=== PATIENT | female | born 1940 | race Caucasian/White ===

== ENCOUNTER 2018-09-20 10:15 | Outpatient (CLI) | payer OTHER, MEDICARE ==
[~2018-09-20 10:15] MED LIST: PROP80CA
== END 2018-09-20 19:58 | disposition home or self-care (01) ==
LOC: SMA 10:15
PROVIDERS: ATTEND Obstetrics & Gynecology Gynecology
DX: Z12.31 Encounter for screening mammogram for malignant neoplasm of breast (principal)
CPT/HCPCS: 77067

== ENCOUNTER 2019-09-29 09:58 | Outpatient (CLI) | payer OTHER, MEDICARE | END 2019-10-01 19:33 | disposition home or self-care (01) | LOC: SMA 09:58 | PROVIDERS: ATTEND Obstetrics & Gynecology Gynecology | DX: Z12.31 Encounter for screening mammogram for malignant neoplasm of breast (principal) | CPT/HCPCS: 77067 ==

== ENCOUNTER 2019-10-12 09:47 | Outpatient (CLI) | payer OTHER, MEDICARE | END 2019-10-12 20:25 | disposition home or self-care (01) | LOC: SMA 09:47 | PROVIDERS: ATTEND Obstetrics & Gynecology Gynecology | DX: R92.8 Other abnormal and inconclusive findings on diagnostic imaging of breast (principal) | CPT/HCPCS: 76641; 77065 ==

== ENCOUNTER 2020-10-02 11:22 | Outpatient (CLI) | payer OTHER, MEDICARE | END 2020-10-02 21:18 | disposition home or self-care (01) | LOC: SMA 11:22 | PROVIDERS: ATTEND Obstetrics & Gynecology Gynecology | DX: Z12.31 Encounter for screening mammogram for malignant neoplasm of breast (principal) | CPT/HCPCS: 77067 ==

== ENCOUNTER 2020-10-16 10:40 | Outpatient (CLI) | payer OTHER, MEDICARE | END 2020-10-16 20:31 | disposition home or self-care (01) | LOC: SUS 10:40 | PROVIDERS: ATTEND Obstetrics & Gynecology Gynecology | DX: R92.2 Inconclusive mammogram (principal) | CPT/HCPCS: 76641 ==

== ENCOUNTER 2021-10-06 09:57 | Outpatient (CLI) | payer OTHER, MEDICARE | END 2021-10-06 20:43 | disposition home or self-care (01) | LOC: SMA 09:57 | PROVIDERS: ATTEND Obstetrics & Gynecology Gynecology | DX: Z12.31 Encounter for screening mammogram for malignant neoplasm of breast (principal) | CPT/HCPCS: 77067 ==

== ENCOUNTER 2022-10-12 10:55 | Outpatient (CLI) | payer OTHER, MEDICARE | END 2022-10-12 19:03 | disposition home or self-care (01) | LOC: SMA 10:55 | PROVIDERS: ATTEND Obstetrics & Gynecology Gynecology | DX: Z12.31 Encounter for screening mammogram for malignant neoplasm of breast (principal) | CPT/HCPCS: 77067 ==

== ENCOUNTER 2022-11-15 11:10 | Emergency (ER) | payer OTHER, MEDICARE ==
[~2022-11-15] VITALS: Ht 157.5 cm; Wt 64.9 kg
[2022-11-15 11:27] VITALS: BP_SYST 155
--- NOTE | 2022-11-15 11:50 | NUR ---
MYRA Ulrich at bedside examining patient.
[2022-11-15] MEDS ORDERED: KETOROLAC TROMETHAMINE 30 MG VIAL IM ONE (12:00)
[2022-11-15] MEDS ORDERED: KETOROLAC TROMETHAMINE 60 MG/2 ML VIAL IM ONE (12:00)
[2022-11-15] MEDS ORDERED: ONDANSETRON 4 MG ODT TAB PO ONE (12:00)
--- NOTE | 2022-11-15 12:00 | NUR ---
PT WALKED TO ROOM 3 WITH CO HEMOROID AND CAUSED PAIN ON RIGHT GROIN. PT IS A/OX4, SPEAKS FULL SENTENCES, FOLLOWS COMMAND, DENIES RAGLAND AND DIZZINESS. NO SOB. BREATHING EVEN.
[2022-11-15 12:18] LABS: BILIRUBIN,URINE NEGATIVE (NEGATIVE); BLOOD, URINE NEGATIVE (NEGATIVE); CLARITY/URINE CLEAR (CLEAR); COLOR,URINE YELLOW (YELLOW); GLUCOSE,URINE NEGATIVE (NEGATIVE); KETONES,URINE NEGATIVE (NEGATIVE); LEUKOCYTE ESTERASE ,URINE NEGATIVE (NEGATIVE); NITRITE, URINE NEGATIVE (NEGATIVE); PH,URINE 6.5 (5.0-8.0); PROTEIN URINE NEGATIVE (NEGATIVE); UROBILINOGEN,URINE 0.2 (0.2-1.0)
[2022-11-15 12:23] LABS: BASOPHILS # (AUTO) 0.1 K/uL (0.0-0.2); BASOPHILS % (AUTO) 0.6 % (0.0-2.0); EOSINOPHILS % (AUTO) 0.4 % (0.0-4.0); HEMATOCRIT 39.4 % (36-48); LYMPHOCYTES # (AUTO) 1.1 K/uL (1.0-5.5); LYMPHOCYTES % (AUTO) 11.8 % (20.5-51.5); MEAN CORPUSCULAR HEMOGLOBIN 30 pg (27-31); MEAN CORPUSCULAR HGB CONC 33 % (32-36); MEAN CORPUSCULAR VOLUME 92 fL (79.0-98.0); MONOCYTES # (AUTO) 0.7 K/uL (0.0-1.0); MONOCYTES % (AUTO) 7.4 % (1.7-9.3); NEUTROPHILS # (AUTO) 7.3 K/uL (1.8-7.7); NEUTROPHILS % (AUTO) 79.8 % (40.0-70.0); PLATELET COUNT (AUTO) 208 K/uL (130-430); RED CELL DISTRIBUTION WIDTH 13.9 % (9.0-15.0); WHITE BLOOD COUNT (AUTO) 9.1 K/uL (4.8-10.8)
[2022-11-15 12:38] LABS: ANION GAP 8 (5-15); CALCIUM 8.8 mg/dL (8.4-11.0); CHLORIDE 104 mmol/L (98-107); CREATININE 0.72 mg/dL (0.55-1.30); GLUCOSE 89 mg/dL (70-99); UREA NITROGEN, BLOOD 11 mg/dL (8-21)
[2022-11-15 12:49] LABS: ALANINE AMINOTRANSFERASE 19 U/L (12-78); ALBUMIN 3.9 g/dL (3.4-4.8); AMYLASE 86 U/L (0-100); ASPARTATE AMINOTRANSFERASE 20 U/L (10-37); LACTATE DEHYDROGENASE 184 U/L (81-234); LIPASE 148 U/L (73-393); TOTAL BILIRUBIN 0.3 mg/dL (0.0-1.0)
[2022-11-15 12:53] LABS: C-REACTIVE PROTEIN QUANT < 0.2 mg/dL (0-0.5)
[2022-11-15 12:57] LABS: ACETONE, SERUM NEGATIVE (NEGATIVE)
[2022-11-15] MEDS ORDERED: HYDR-3917 PO (13:49)
[2022-11-15] MEDS ORDERED: IBUP-1969 PO (13:49)
--- NOTE | 2022-11-15 14:11 | NUR ---
Patient given written and verbal discharge instructions and verbalizes understanding. ER MD discussed with patient the results and treatment provided. Patient in stable condition. ID arm band removed. Rx of NORCO AND IBUPROFEN given. Patient educated on pain management and to follow up with PMD. Pain Scale 1. Opportunity for questions provided and answered. Medication side effect fact sheet provided.
[2022-11-15 14:12] VITALS: BP_SYST 134
== END 2022-11-15 14:11 | disposition home or self-care (01) ==
LOC: SED 11:10
DX: D25.9 Leiomyoma of uterus, unspecified (principal); R10.31 Right lower quadrant pain; E78.5 Hyperlipidemia, unspecified; Z88.1 Allergy status to other antibiotic agents; Z79.899 Other long term (current) drug therapy
CPT/HCPCS: 36415; 76376; 80053; 81003; 82009; 82150; 83605; 83615; 83690; 84484; 85025; 86140; 93005; 99285

== ENCOUNTER 2022-11-27 14:07 | Emergency (ER) | payer OTHER, MEDICARE ==
[~2022-11-27] VITALS: Ht 162.6 cm; Wt 65.8 kg
[~2022-11-27 14:07] MED LIST changes: +HYDR-3917 PO; +IBUP-1969 PO
[2022-11-27 14:18] VITALS: BP_SYST 147
[2022-11-27] MEDS ORDERED: ONDANSETRON 4 MG ODT TAB PO ONE (15:45)
[2022-11-27 16:09] LABS: BASOPHILS # (AUTO) 0.1 K/uL (0.0-0.2); BASOPHILS % (AUTO) 0.5 % (0.0-2.0); EOSINOPHILS % (AUTO) 0.3 % (0.0-4.0); HEMATOCRIT 40.2 % (36-48); HEMOGLOBIN 13.5 g/dL (12.0-16.0); LYMPHOCYTES # (AUTO) 1.5 K/uL (1.0-5.5); LYMPHOCYTES % (AUTO) 12.5 % (20.5-51.5); MEAN CORPUSCULAR HEMOGLOBIN 31 pg (27-31); MEAN CORPUSCULAR HGB CONC 34 % (32-36); MEAN CORPUSCULAR VOLUME 92 fL (79.0-98.0); MONOCYTES # (AUTO) 0.7 K/uL (0.0-1.0); MONOCYTES % (AUTO) 5.7 % (1.7-9.3); NEUTROPHILS # (AUTO) 9.6 K/uL (1.8-7.7); PLATELET COUNT (AUTO) 204 K/uL (130-430); WHITE BLOOD COUNT (AUTO) 11.9 K/uL (4.8-10.8)
[2022-11-27 16:18] LABS: ANION GAP 9 (5-15); CALCIUM 8.9 mg/dL (8.4-11.0); CHLORIDE 102 mmol/L (98-107); CREATININE 0.73 mg/dL (0.55-1.30); GLUCOSE 102 mg/dL (70-99); UREA NITROGEN, BLOOD 12 mg/dL (8-21)
[2022-11-27 16:25] LABS: ALANINE AMINOTRANSFERASE 25 U/L (12-78); AMYLASE 105 U/L (0-100); ASPARTATE AMINOTRANSFERASE 24 U/L (10-37); LACTATE DEHYDROGENASE 235 U/L (81-234); LIPASE 174 U/L (73-393); TOTAL BILIRUBIN 0.4 mg/dL (0.0-1.0)
[2022-11-27 16:26] LABS: C-REACTIVE PROTEIN QUANT < 0.2 mg/dL (0-0.5)
[2022-11-27 16:40] LABS: ACETONE, SERUM NEGATIVE (NEGATIVE)
--- NOTE | 2022-11-27 17:31 | NUR ---
PATIENT TO ED AT THIS TIME, PATIENT STATES EARLIER TODAY SHE BECAME NASEOUS BUT NO VOMITING, PATIENT STATES THAT SHE CONTINUES TO HAVE DIFFUSE ADOMINAL DISCOMFORT. WAITING FOR LAB RESULTS.
--- NOTE | 2022-11-27 17:40 | NUR ---
URINE DIPPED AT THIS TIME BY EMT, PATIENT ADMINISERED ODT ZOFRAN WILL MONITOR PATIENT
[2022-11-27 17:59] LABS: BILIRUBIN,URINE NEGATIVE (NEGATIVE); BLOOD, URINE NEGATIVE (NEGATIVE); CLARITY/URINE CLEAR (CLEAR); COLOR,URINE YELLOW (YELLOW); GLUCOSE,URINE NEGATIVE (NEGATIVE); KETONES,URINE NEGATIVE (NEGATIVE); LEUKOCYTE ESTERASE ,URINE NEGATIVE (NEGATIVE); NITRITE, URINE NEGATIVE (NEGATIVE); PH,URINE 5.5 (5.0-8.0); PROTEIN URINE NEGATIVE (NEGATIVE); UROBILINOGEN,URINE 0.2 (0.2-1.0)
[2022-11-27] MEDS ORDERED: ONDA-8 TL (18:13)
--- NOTE | 2022-11-27 18:23 | NUR ---
patient verbalizes nausea relieve. patient states she is ready to be discharged, MD at bedside. patient denies pain
[2022-11-27 18:24] VITALS: BP_SYST 110
--- NOTE | 2022-11-27 18:27 | NUR ---
Patient given written and verbal discharge instructions and verbalizes understanding. ER MD discussed with patient the results and treatment provided. Patient in stable condition. ID arm band removed. IV catheter removed intact and dressing applied, no active bleeding. Rx of given. Patient educated on pain management and to follow up with PMD. Pain Scale . Opportunity for questions provided and answered. Medication side effect fact sheet provided.
== END 2022-11-27 18:27 | disposition home or self-care (01) ==
LOC: SED 14:07
DX: R11.0 Nausea (principal); E78.5 Hyperlipidemia, unspecified; Z88.1 Allergy status to other antibiotic agents; Z79.899 Other long term (current) drug therapy
CPT/HCPCS: 99283; 80053; 82009; 82150; 83615; 83690; 85025; 86140; 84484; 36415; 83605; 81003; Q0162

== ENCOUNTER 2022-12-15 10:55 | Outpatient (CLI) | payer OTHER, MEDICARE ==
[~2022-12-15 10:55] MED LIST changes: +ONDA-8 TL
== END 2022-12-15 19:15 | disposition home or self-care (01) ==
LOC: SUS 10:55
PROVIDERS: ATTEND Internal Medicine Cardiovascular Disease
DX: N60.02 Solitary cyst of left breast (principal); N64.89 Other specified disorders of breast; R92.2 Inconclusive mammogram
CPT/HCPCS: 76641

== ENCOUNTER 2023-10-26 09:19 | Emergency (ER) | payer OTHER, MEDICARE ==
[~2023-10-26] VITALS: Ht 157.5 cm; Wt 59.4 kg
[2023-10-26 09:41] VITALS: BP_SYST 147; PULSE 84; RESP 17; TEMP 97.3; O2SAT 98
[2023-10-26] MEDS ORDERED: PRED50TA PO (10:09)
[2023-10-26] MEDS ORDERED: ZIT250 PO ×2 (10:09)
[2023-10-26] MEDS ORDERED: BENZ100C92 PO (10:09)
[2023-10-26] MEDS ORDERED: PENI500T PO (10:27)
[2023-10-26] MEDS ORDERED: NIRM1TAB PO (10:41)
== END 2023-10-26 10:18 | disposition home or self-care (01) ==
LOC: SED 09:19
DX: U07.1 COVID-19 (principal); K12.2 Cellulitis and abscess of mouth; J02.9 Acute pharyngitis, unspecified; R05.9 Cough, unspecified; I10 Essential (primary) hypertension; Z88.1 Allergy status to other antibiotic agents; Z79.899 Other long term (current) drug therapy; Z20.822 Contact with and (suspected) exposure to COVID-19
CPT/HCPCS: 36415; 99283